=== PATIENT | female | born 1995 | race Caucasian/White ===

== ENCOUNTER 2017-03-16 14:06 | Emergency (ER) | payer OTHER ==
[~2017-03-16] VITALS: Ht 170.2 cm; Wt 87.4 kg
[2017-03-16 14:08] VITALS: TEMP 36.6; Ht 170.2 cm; Wt 87.4 kg
[2017-03-16] MEDS ORDERED: NORGTAB50 PO (14:16)
--- NOTE | 2017-03-16 14:52 | DIAGNOSTIC IMAGING REPORT ---
RIGHT FINGER(S) MIN 2 VIEWS ROUTINE HISTORY: 21 years-old Female acute right hand first digit injury. COMPARISON: None available TECHNIQUE: 3 views of the right thumb FINDINGS: There is an acute mildly displaced and comminuted fracture of the medial aspect of the first distal phalangeal tuft with approximately 2 mm medial 2 mm dorsal displacement. There is associated moderate degree of soft tissue swelling and subcutaneous emphysema suggesting associated laceration. No radiopaque foreign body is identified. IMPRESSION: Acute mildly displaced and comminuted first distal phalangeal tuft fracture with associated soft tissue laceration. No radiopaque foreign body. The above report was generated using voice recognition software. It may contain grammatical, syntax or spelling errors. Electronically signed by: Sergo Rider M.D. 03/16/2017 2:51 PM Dictated Date/Time: 03/16/2017 2:49 PM
[2017-03-16] MEDS ORDERED: CEPH500C2 PO (15:00)
[2017-03-16] MEDS ORDERED: HYDR-5688 PO (15:00)
[2017-03-16 15:21] VITALS: BP 131/79; PULSE 79; O2SAT 100
--- NOTE | 2017-03-18 20:17 | EMERGENCY ROOM VISIT NOTE ---
ED Visit Note First contact with patient: 14:24 Chief Complaint: Right thumb pain. History of Present Illness: Ms. Keane is a 21-year-old white female who ambulates into the ED complaining of right thumb pain over the distal phalanx. Patient reports shortly before arriving in the emergency department she was at work cutting a piece of piping. She reports some portion of the cutting tool was hydraulic and snapped back into her hand and injured her right thumb. Since that time she has been having a throbbing pain over the distal phalanx of the right thumb. She rates her discomfort 5/10. The pain is nonradiating. The pain worsens with palpation and flexion and extension of the thumbs interphalangeal joint. She has not identified any alleviating factors related to the pain. She has not had any medications for pain prior to arrival at the hospital. Associated with her pain she reports she has a mild numbness sensation throughout the distal phalanx and she sustained a laceration to the anterior aspect of the distal thumb pad. She denies any associated wrist pain, other hand pain, other finger pain, thumb weakness. She also denies any previous significant thumb injuries or surgeries. Review of Systems: As noted above in history of present illness. Past Medical History: Patient denies. Current Medications: Oral control. Allergies to Medications: Penicillin. Social History: Patient is currently employed; she feels safe in her home environment; she denies tobacco use. Physical Examination: Vital Signs: Date Time Temp Pulse Resp B/P (MAP) Pulse Ox O2 Delivery O2 Flow Rate FiO2 03/16/17 15:21 79 15 131/79 100 03/16/17 14:08 36.6 80 15 118/59 97 Room Air GENERAL: 21-year-old female in mild distress due to pain, nontoxic-appearing, afebrile and hemodynamically stable. NEUROLOGICAL: Awake, alert and oriented to person, place and time. Answering questions appropriately and following commands. SKIN: Warm, dry and pink. Right Thumb: 0.9 cm laceration over the distal aspect of the thumb pad. No active bleeding. Difficulty to a assessed depth due to swelling. RIGHT THUMB: No gross bony deformity. Soft tissue injury as noted above. Moderate tenderness over the distal phalanx with moderate swelling but no bony deformity or crepitus. Minimal tenderness over the interphalangeal joint. Once again there is no bony deformity, crepitus or laxity of the joint. No tenderness over the proximal phalanx were within the MCP joint. Throughout the finger the skin was warm and pink and capillary refill is brisk. She was able to distinguish light sensations through all dermatomes of the thumb. There was scant blood under the nail. ED Course: Patient is assessed as noted above. Patient's medication list was reviewed. Right Thumb X-Rays: Was read by myself and radiologist showing a mildly acute displaced and comminuted distal phalanx tuft fracture with soft tissue laceration. Patient was offered pain medication and refused. Patient's laceration was cleansed with antibacterial soap and water and covered with a bacitracin dressing. Patient's thumb was placed in a metal splint. Patient's case was reviewed with Dr. Francis; we agreed on diagnostic approach, treatment, disposition and plan per Patient was educated about today's findings and instructed on her treatment plan ; she verbalized understanding and agreement with this plan. Clinical Impression: Right thumb distal phalanx fracture. Thumb laceration. Work related injury. Disposition: Patient discharged home in stable condition; prior to departure she was reassessed and subjectively reported she was feeling slightly worse and rated her discomfort 6/10. Plan: Patient was prescribed Keflex 500 mg 4 times a day for 7 days. Patient was placed on a sliding pain scale of ibuprofen, acetaminophen and [place] ; she was given appropriate narcotic precautions and her name was checked in the state database and no red flags were noted. Splint and ice use or discussed with the patient. Patient was encouraged to follow-up with Work[employer] Compensation for recheck and referral to orthopedics. Patient was in educated on signs of infection. Patient was encouraged return ED for uncontrolled pain, signs of infection or any new/concerning symptoms.
== END 2017-03-16 15:22 | disposition home or self-care (01) ==
LOC: C.EDB 14:09 → C.EDD 15:22
DX: S62.521A Displaced fracture of distal phalanx of right thumb, initial encounter for closed fracture (principal); S61.011A Laceration without foreign body of right thumb without damage to nail, initial encounter; W29.8XXA Contact with other powered hand tools and household machinery, initial encounter; Y93.89 Activity, other specified; Y99.0 Civilian activity done for income or pay